=== PATIENT | female | born 1935 | race African-American/Black ===

== ENCOUNTER 2020-02-22 16:16 | Emergency (ER) | payer OTHER ==
[2020-02-22 16:21] VITALS: BMI 26.4
--- NOTE | 2020-02-22 16:23 | PDOC ---
Rapid Medical Evaluation Chief Complaint: Lightheaded Time Seen by Provider: 02/22/20 16:18 Medical Evaluation: Allergies Allergy/AdvReac Type Severity Reaction Status Date / Time No Known Allergies Allergy Verified 11/12/14 09:01 02/22/20 16:18 I have performed a brief in-person evaluation of this patient. CC: Sent by PMD for dizziness, EKG changes, glucosuria PE: [place] negative. No weakness noted. Lungs CTAB. RRR. No m/r/g. Orders: Cardiac w/u with [facility] Patient to proceed to ER for further evaluation. Discharge Disposition - Diagnosis Dizziness - Referrals - Patient Instructions - Post Discharge Activity
--- NOTE | 2020-02-22 16:53 | PDOC ---
History of Present Illness - General Chief Complaint: Lightheaded Stated Complaint: DIZZINESS Time Seen by Provider: 02/22/20 16:18 Past History - Medical History Allergies/Adverse Reactions: Allergies Allergy/AdvReac Type Severity Reaction Status Date / Time No Known Allergies Allergy Verified 02/22/20 16:21 Home Medications: Ambulatory Orders Amlodipine Besylate 5 mg PO DAILY 02/22/20 Calcium Magnesium + D Tablet 1 tab PO DAILY 02/22/20 Fluticasone Propionate [Flovent Diskus] 2 spray IN DAILY 02/22/20 Meclizine HCl [Antivert -] 12.5 mg PO TID PRN #21 tablet 02/22/20 COPD: No HTN: Yes Other medical history: macular degeneration - Psycho-Social/Smoking History Smoking History: Never smoked *Physical Exam - Vital Signs Last Vital Signs Temp Pulse Resp BP Pulse Ox 98.8 F 90 18 169/75 99 02/22/20 16:17 02/22/20 16:17 02/22/20 16:17 02/22/20 16:17 02/22/20 16:17 ED Treatment Course - LABORATORY CBC & Chemistry Diagram: 02/22/20 16:35 02/22/20 16:35 Medical Decision Making - Medical Decision Making 02/22/20 16:52 HPI: 84yo F hx HTN (on amlodipine) and macular degeneration sent by for abnormal EKG and glucosuria c/o intermittent self-resolving episodes of vertigo (feeling like she's spinning) and generalized weakness x5 days. Episodes only occur with rapid movements like flipping over in bed or bending over/down, self resolve in a few minutes. Pt asymptomatic at this time. Pt had 1 similar episode 2 years ago in [place] while in bed and flipped over from one side to other, f/u with doctor in [place] and told probably due to dehydration. Denies numbness/tinging, difficulty walking, focal weakness, vision changes, headache, trauma, fall, CP, SOB, abdominal pain, N/V, F/C, tinnitus, hearing loss, ear pain. PCP - at [facility] ROS: Constitutional: Positive for generalized weakness. Negative for chills, fever, diaphoresis. HENT: Negative for sore throat, rhinorrhea, congestion. Eyes: Negative for visual disturbance. Respiratory: Negative for shortness of breath, cough, and wheezing. Cardiovascular: Negative for chest pain, palpitations, and leg swelling. Gastrointestinal: Negative for abdominal pain, blood in stool, constipation, diarrhea, nausea, and vomiting. Genitourinary: Negative for dysuria, flank pain, and hematuria. Musculoskeletal: Negative for myalgias, back pain, and neck pain. Skin: Negative for rash. Neurological: Positive for vertigo, dizziness. Negative for light-headedness, syncope, weakness, numbness and headaches. Psychiatric/Behavioral: Negative for behavioral problems and confusion. PE: Gen: Alert, NAD, comfortable-appearing. HEENT: PERRL, EOMI, dry MM, NCAT. No conjunctival pallor. Sclera are non- icteric. CV: Regular rate and rhythm. No murmurs, rubs, or gallops. PULM: No resp distress. CTAB, no wheezes, rales, or rhonchi. ABD: soft, NT/ND, no rebound tenderness or guarding, no CVA tenderness. BACK: No TTP of c/t/l-spine. No step-offs or deformities. MSK: No bony deformities. 2+ pulses in all extremities. NEURO: AAOx3. PERRL. CN 2-12 intact. 5/5 strength in all extremities. Sensation to light touch intact in all extremities. No pronator drift. Difficult to assess for dysmetria due to difficulty with finger to finger testing 2/2 macular degeneration. No dysdiadochokinesia. No abnormal nystagmus. Normal gait. EXTREMITIES: No cyanosis. No clubbing. No edema. No calf tenderness. PSYCH: Normal mood and thought pattern. SKIN: Warm and dry. Normal capillary refill. No rashes. No jaundice. MDM: 84yo F hx HTN (on amlodipine) and macular degeneration sent by for abnormal EKG and glucosuria c/o intermittent self-resolving episodes of vertigo (feeling like she's spinning) and generalized weakness x5 days. Hemodynamically stable, afebrile, neurologically intact, no current nystagmus or vertigo - HINTS exam not applicable at this time. Ddx: presentation c/w BPPV or other peripheral vertigo. Due to association with position/movement and intermittent nature of sx and lack of neuro deficits, very low concern for ICH or stroke. Also consider thyroid pathology, ACS/FL, arrhythmia, UTI, PNA, infection, metabolic derangement, anemia -EKG -CXR -CTH -CBC,CMP,Coags,Cardiac profile,TSH,UA/UC -Dispo: pending workup and reassessment, likely d/c home 02/22/20 17:37 CTH reviewed: No acute pathology EKG reviewed: normal sinus rhythm, RBBB, 87bpm, normal axis, MO interval 140ms, QTc 481ms, no e/o acute ischemia, no prior EKGs for comparison CXR reviewed: No acute pathology 02/22/20 18:13 Labs reviewed. No concerning findings. UA negative for UTI or blood or gluco [place]ia. Pt remains asymptomatic despite walking, rapid movements, and [place] maneuver. Likely BPPV. Discussed meclizine and thelma maneuver. Will discharge home with neuro f/u and meclizine. Return precautions given. Pt understands all discharge instructions and all questions were answered. Discharge - Discharge Information Problems reviewed: Yes Clinical Impression/Diagnosis: Dizziness, BPPV (benign paroxysmal positional vertigo) Condition: Stable Disposition: HOME - Admission No - Additional Discharge Information Prescriptions: Meclizine HCl [Antivert -] 12.5 mg PO TID PRN #21 tablet PRN Reason: Vertigo - Follow up/Referral Referrals: Tee Antoine MD [Staff Physician] - ON STAFF,NOT [Primary Care Provider] - - Patient Discharge Instructions Patient Printed Discharge Instructions: Benign Paroxysmal Positional Vertigo, DI for Benign Paroxysmal Positional Vertigo, How to Perform [place]orne Vertigo Exercises Additional Instructions: You have been seen in the Emergency Department for your vertigo (dizziness). Your EKG, chest X-ray, CT scan of your head, and labs show no signs concerning for an emergent condition such as a heart attack or stroke. You most likely have BPPV (Benign paroxysmal positional vertigo). Attached is information on BPPV and on maneuvers you can try to make the dizziness stop if it happens again. We have also sent a medication for vertigo to your pharmacy (Meclizine) - take as needed as prescribed for vertigo if the maneuvers don't help. We have given you a referral to a neurologist (brain doctor) - call the office in the morning to set up a follow-up appointment for within 1 week. Also follow- up with your primary care doctor within 1 week. Return to the Emergency Department immediately if you experience difficulty walking, difficulty talking, weakness, numbness, chest pain, passing out, or any other new or worsening symptom. - Post Discharge Activity
[2020-02-22] MEDS ORDERED: MECLIZINE HCL 25 MG TABLET (FP) PO ONE (17:07)
[2020-02-22 17:08] LABS: BASO % 0.5 % (0-2.0); EOS % 1.9 % (0-4.5); HEMATOCRIT 40.7 % (32.4-45.2); HEMOGLOBIN 13.4 GM/dL (10.7-15.3); LYMPH % 33.4 % (8-40); MCH 29.9 pg (25.7-33.7); MEAN CELL VOLUME 90.6 fl (80-96); MEAN PLT VOLUME 9.1 fl (7.5-11.1); MONO % 8.5 % (3.8-10.2); NEUT % 55.7 % (42.8-82.8); PLATELET COUNT 240 K/MM3 (134-434); RBC 4.49 M/mm3 (3.60-5.2); RDW 14.4 % (11.6-15.6); WHITE BLOOD COUNT 4.9 K/mm3 (4.0-10.0)
[2020-02-22] MEDS ORDERED: SODIUM CHLORIDE 1,000 ML IV SCH (17:15)
[2020-02-22 17:40] LABS: ALBUMIN 3.9 g/dl (3.4-5.0); ALK PHOS 100 U/L (45-117); ANION GAP 7 MMOL/L (8-16); BILIRUBIN,TOTAL 0.3 mg/dL (0.2-1); BLOOD UREA NITROGEN 13.3 mg/dL (7-18); CALCIUM 9.6 mg/dL (8.5-10.1); CHLORIDE 106 mmol/L (98-107); CO2 27 mmol/L (21-32); CREATININE 0.8 mg/dL (0.55-1.3); GLUCOSE,RANDOM 117 mg/dL (74-106); POTASSIUM 4.8 mmol/L (3.5-5.1); SGOT/AST 24 U/L (15-37); SGPT/ALT 27 U/L (13-61); SODIUM 141 mmol/L (136-145); TOT PROT 7.9 g/dl (6.4-8.2)
[2020-02-22 18:04] LABS: INR 0.94 (0.83-1.09); PROTHROMBIN TIME (PATIENT) 11.1 SEC (9.7-13.0)
[2020-02-22 18:06] LABS: ACTIVATED PTT 36.4 SECONDS (25.2-36.5)
--- NOTE | 2020-02-22 18:17 | PDOC ---
Attending Attestation - Resident Resident Name: rKistin Dugan - ED Attending Attestation I have performed the following: I have examined & evaluated the patient, The case was reviewed & discussed with the resident, I agree w/resident's findings & plan, Exceptions are as noted - HPI HPI: 02/22/20 18:14 84 F with h/o HTN, macular degeneration, presenting with dizziness. Pt states that for 2 weeks, she has had intermittent episodes of room-spinning sensation. States that it is worsened with turning her head to the left. These episodes only last about 10 minutes. Pt denies any headache. Denies slurred speech, denies weakness/numbness in any extremity. She notes that she was at urgent care today and had an EKG that she was told was "abnormal", as well as glucose in her urine. Pt states that since arriving to the ED, her dizziness has resolved. Denies any complaints at this time. - Physicial Exam PE: 02/22/20 18:16 "GENERAL: Awake, alert, and fully oriented, in no acute distress. HEAD: No signs of trauma EYES: PERRLA, EOMI, sclera anicteric, conjunctiva clear ENT: Auricles normal inspection, hearing grossly normal, nares patent, oropharynx clear without exudates. Moist mucosa NECK: Nontender, no stepoffs, Normal ROM, supple, no lymphadenopathy, JVD, or masses LUNGS: Breath sounds equal, clear to auscultation bilaterally. No wheezes, and no crackles HEART: Regular rate and rhythm, normal S1 and S2, no murmurs, rubs or gallops ABDOMEN: Soft, nontender, normoactive bowel sounds. No guarding, no rebound. No masses EXTREMITIES: Normal range of motion, no edema. No clubbing or cyanosis. No cords, erythema, or tenderness NEUROLOGICAL: Cranial nerves II through XII intact. 5/5 strength and sensation in all extremities, Normal speech, normal gait, normal cerebellar function SKIN: Warm, Dry, normal turgor, no rashes or lesions noted. - Medical Decision Making 02/22/20 18:16 84 F with intermittent room-spinning sensation. Suspect peripheral vertigo. Pt currently asymptomatic with no neuro deficits on exam. - Labs - CT head 02/22/20 18:[address] unremarkable Pt reassessed - continues to have no symptoms. Ambulated in ED with steady gait. Pt is well appearing, with normal vitals. Clinically stable for DC at this time. I discussed the physical exam findings, ancillary test results and final diagnoses with the patient. I answered all of the patient's questions. The patient was satisfied with the care received and felt comfortable with the discharge plan and treatment plan. The patient agrees to follow up with the primary care physician within 24-72 hours. Please note this patient was evaluated during the COVID-19 crisis with the presidential [place] Act Declaration and the [place] governor executive order number 202. He/she was evaluated and clinical decisions were made relative to healthcare system resources as well as clinical picture during a pandemic crisis situation. Discharge - Discharge Information Problems reviewed: Yes Clinical Impression/Diagnosis: Dizziness, BPPV (benign paroxysmal positional vertigo) Condition: Stable Disposition: HOME - Additional Discharge Information Prescriptions: Meclizine HCl [Antivert -] 12.5 mg PO TID PRN #21 tablet PRN Reason: Vertigo - Follow up/Referral Referrals: Tee Antoine MD [Staff Physician] - ON STAFF,NOT [Primary Care Provider] - - Patient Discharge Instructions Patient Printed Discharge Instructions: Benign Paroxysmal Positional Vertigo, DI for Benign Paroxysmal Positional Vertigo, How to Perform [place] Vertigo Exercises Additional Instructions: You have been seen in the Emergency Department for your vertigo (dizziness). Your EKG, chest X-ray, CT scan of your head, and labs show no signs concerning for an emergent condition such as a heart attack or stroke. You most likely have BPPV (Benign paroxysmal positional vertigo). Attached is information on BPPV and on maneuvers you can try to make the dizziness stop if it happens again. We have also sent a medication for vertigo to your pharmacy (Meclizine) - take as needed as prescribed for vertigo if the maneuvers don't help. We have given you a referral to a neurologist (brain doctor) - call the office in the morning to set up a follow-up appointment for within 1 week. Also follow- up with your primary care doctor within 1 week. Return to the Emergency Department immediately if you experience difficulty walking, difficulty talking, weakness, numbness, chest pain, passing out, or any other new or worsening symptom. - Post Discharge Activity
[2020-02-22 18:35] LABS: EPI CELLS 3 /uL (0-25.1); HYALINE CASTS 0 /uL (0-3.1); URINE APPEARANCE CLEAR; URINE BACTERIA 15 /uL (0-1359); URINE BILIRUBIN NEGATIVE (NEGATIVE); URINE COLOR YELLOW; URINE GLUCOSE (UA) NEGATIVE (NEGATIVE); URINE KETONE NEGATIVE (NEGATIVE); URINE LEUK ESTERASE TRACE (NEGATIVE); URINE NITRITE NEGATIVE (NEGATIVE); URINE PROTEIN NEGATIVE (NEGATIVE); URINE RBC 3 /uL (0-23.9); URINE UROBILINOGEN 0.2 mg/dL (0.2-1.0); URINE WBC 21 /uL (0-25.8)
[2020-02-22 18:58] VITALS: BP 140/65; PULSE 75; TEMP 98
--- NOTE | 2020-02-23 11:29 | EKG ---
Test Reason : Blood Pressure : / mmHG Vent. Rate : 087 BPM Atrial Rate : 087 BPM P-R Int : 140 ms QRS Dur : 132 ms QT Int : 400 ms P-R-T Axes : 016 -29 007 degrees QTc Int : 481 ms NORMAL SINUS RHYTHM RIGHT BUNDLE BRANCH BLOCK MODERATE VOLTAGE CRITERIA FOR LVH, MAY BE NORMAL VARIANT ABNORMAL ECG NO PREVIOUS ECGS AVAILABLE Confirmed by ALVIN COTTER MD ([id number]) on 02/23/2020 11:29:17 AM Referred By: Confirmed By:ALVIN COTTER MD
== END 2020-02-22 18:55 | disposition home or self-care (01) ==
LOC: JER 16:16
DX: R42 Dizziness and giddiness (principal); H81.10 Benign paroxysmal vertigo, unspecified ear
CPT/HCPCS: 36415; 70450-TC; 71045-TC-FY; 80053; 81003; 82550; 82553; 84443; 84484; 85025; 85610; 85730; 86850; 86900; 86901; 87040; 87086; 93005; 93010; 99285-25

== ENCOUNTER 2021-07-23 18:13 | Emergency (ER) | payer OTHER ==
[2021-07-23 18:31] VITALS: TEMP 97.8; BMI 26.4
[2021-07-23] MEDS ORDERED: ACETAMINOPHEN 325 MG TABLET (FP) PO ONE (19:46)
[2021-07-23] MEDS ORDERED: ACETAMINOPHEN 325 MG TABLET (FP) ONE (20:46)
[2021-07-23 22:33] VITALS: BP 149/71; PULSE 65
== END 2021-07-23 22:34 | disposition home or self-care (01) ==
LOC: JER 18:13
DX: S09.90XA Unspecified injury of head, initial encounter (principal); W01.198A Fall on same level from slipping, tripping and stumbling with subsequent striking against other object, initial encounter
CPT/HCPCS: 70450-TC; 72125-TC; 99284-25